=== PATIENT | female | born 1965 | race Caucasian/White ===

== ENCOUNTER → 2017-03-16 11:19 | Outpatient (CLI) | payer BC, SELFPAY ==
--- NOTE | 2017-03-16 11:50 | XR_ITS ---
XR chest 2V COMPARISON: None HISTORY: Persistent cough TECHNIQUE: PA and lateral chest FINDINGS: This is a somewhat poor inspiration however lung brandt are clear of infiltrate. There is borderline cardio megaly without failure. There is no pleural fluid. The bony thorax appears normal. IMPRESSION: Poor inspiration, grossly negative chest
[2017-03-16 12:30] LABS: Basophils % 0.3 % (0.1-2.0); Eosinophils # 0.2 K/mm3 (0.0-0.4); Eosinophils % 1.7 % (0.1-12.0); Hematocrit 38.7 % (37.0-47.0); Hemoglobin 12.3 g/dL (12.2-16.2); Lymphocytes # 1.3 K/mm3 (0.7-4.5); Lymphocytes % 12.4 K/mm3 (10-50); Mean Corpuscular HGB Conc 31.8 g/dL (31.8-35.4); Mean Corpuscular Hemoglobin 28.8 pg (27.0-31.2); Mean Corpuscular Volume 90.6 fl (81-99); Mean Platelet Volume 7.2 fl (7.4-10.4); Monocytes # 0.5 K/mm3 (0.1-1.0); Monocytes % 4.7 % (1.7-9.3); Neutrophils # 8.6 K/mm3 (1.8-7.8); Platelet Count 406 K/mm3 (142-424); Red Blood Count 4.27 M/mm3 (4.20-5.40); Red Cell Distribution Width 13.3 % (11.5-17.5); White Blood Count 10.6 K/mm3 (4.8-10.8)
[2017-03-16 14:11] LABS: Alanine Aminotransferase 177 U/L (12-78); Albumin/Globulin Ratio 0.8 (1.1-1.8); Alkaline Phosphatase 87 U/L (46-116); Anion Gap 13.5 mEq/L (5-15); Aspartate Amino Transferase 82 U/L (15-37); Bilirubin,Total 0.4 mg/dL (0.2-1.0); Blood Urea Nitrogen 7 mg/dL (7-18); Calcium 8.1 mg/dL (8.5-10.1); Carbon Dioxide 26 mmol/L (21.0-32.0); Chloride 103 mmol/L (98-107); Creatinine,Serum 0.62 mg/dL (0.55-1.02); Estimated Glomerular Filt Rate 101 ml/min (>60); GFR (African American) 123 ML/MIN (>60); Glucose 73 mg/dL (74-106); Potassium 3.5 mmoL/L (3.5-5.1); Sodium 139 mmol/L (136-145); Thyroid Stimulating Hormone 2.16 uIU/ml (0.358-3.740)
[2017-03-19 06:23] LABS: Vitamin B12 521 pg/mL (232-1245)
[2017-03-20 18:17] LABS: Vitamin D 25 Hydroxy 10.7 ng/mL (30.0-100.0)
== END ==
PROVIDERS: PCP Nurse Practitioner Family; Referring Provider Nurse Practitioner Family; Visit Provider Nurse Practitioner Family
DX: R05 Cough (principal); R53.83 Other fatigue
CPT/HCPCS: 36415; 71046; 80053; 82607; 82652; 84443; 85025

== ENCOUNTER 2024-12-08 11:00 | Outpatient (RCR) | payer BC, SELFPAY | END 2024-12-08 23:59 | disposition home or self-care (01) | LOC: PT.CARL 11:00 | PROVIDERS: PCP Nurse Practitioner Family; Visit Provider Orthopaedic Surgery | DX: M76.71 Peroneal tendinitis, right leg (principal) | CPT/HCPCS: 97032; 97035; 97110; 97112; 97140; 97161; 97530 ==

== ENCOUNTER 2024-12-29 11:00 | Outpatient (RCR) | payer BC, SELFPAY | END 2024-12-29 23:59 | disposition home or self-care (01) | LOC: PT.CARL 11:00 | PROVIDERS: PCP Nurse Practitioner Family; Visit Provider Orthopaedic Surgery | DX: M76.71 Peroneal tendinitis, right leg (principal) | CPT/HCPCS: 97110; 97112; 97530 ==